=== PATIENT | female | born 1995 | race American Indian/Alaskan Native ===

== ENCOUNTER 2019-07-01 23:32 | Emergency (ER) | payer OTHER ==
[2019-07-02] MEDS ORDERED: ONDANSETRON 4 MG ODT TAB PO ONE (03:33)
[2019-07-02] MEDS ORDERED: IBUPROFEN 600 MG TAB PO ONE (03:33)
[2019-07-02] MEDS ORDERED: oxyCODONE /ACETAMINOPHEN 5-325MG TAB PO ONE (03:33)
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
[2019-07-02 04:48] VITALS: BP 142/86
== END 2019-07-02 04:20 | disposition home or self-care (01) ==
LOC: ED 23:32
DX: S43.401A Unspecified sprain of right shoulder joint, initial encounter (principal); G44.319 Acute post-traumatic headache, not intractable; M62.830 Muscle spasm of back; X58.XXXA Exposure to other specified factors, initial encounter; Y93.89 Activity, other specified; Y92.89 Other specified places as the place of occurrence of the external cause; Y99.8 Other external cause status
CPT/HCPCS: 99282; Q0162